=== PATIENT | male | born 1985 | race Native Hawaiian/Other Pacific Islander ===

== ENCOUNTER 2018-08-30 08:32 | Outpatient (CLI) | payer BC ==
[2018-08-30 08:50] LABS: PLATELET COUNT 282 K/uL (142-355)
[2018-08-30 09:21] LABS: POTASSIUM 4.2 mmol/L (3.6-5.2)
== END 2018-08-30 23:41 | disposition home or self-care (01) ==
LOC: LABW 08:32
PROVIDERS: Internal Medicine
DX: Z00.00 Encounter for general adult medical examination without abnormal findings (principal)
CPT/HCPCS: 80053; 80061; 81000; 84439; 84443; 85027

== ENCOUNTER 2019-07-08 10:18 | Outpatient (CLI) | payer BC | END 2019-07-08 21:10 | disposition home or self-care (01) | LOC: LABW 10:18 | DX: E03.9 Hypothyroidism, unspecified (principal) | CPT/HCPCS: 36415; 84439; 84443 ==

== ENCOUNTER 2019-08-04 10:57 | Outpatient (CLI) | payer BC | END 2019-08-04 22:00 | disposition home or self-care (01) | LOC: RAD 10:57 | DX: J40 Bronchitis, not specified as acute or chronic (principal) ==

== ENCOUNTER 2020-02-04 09:02 | Outpatient (CLI) | payer BC, OTHER | END 2020-02-04 21:05 | disposition home or self-care (01) | LOC: LAB 09:02 | DX: Z20.828 Contact with and (suspected) exposure to other viral communicable diseases (principal) | CPT/HCPCS: 87635; G2023; U0003 ==

== ENCOUNTER 2020-11-04 08:54 | Outpatient (CLI) | payer BC | END 2020-11-04 22:17 | disposition home or self-care (01) | LOC: MRI 08:54 | PROVIDERS: ATTEND Internal Medicine | DX: H54.7 Unspecified visual loss (principal) ==